=== PATIENT | female | born 1985 | race American Indian/Alaskan Native ===

== ENCOUNTER 2018-01-18 07:28 | Emergency (ER) | payer MEDICAID ==
[2018-01-18 07:45] VITALS: BP 106/77
[2018-01-18 08:24] LABS: Bilirubin,Urine NEG (Negative); Blood,Urine NEG (Negative); Color,Urine Yellow (Yellow); Mucus,Urine FEW /HPF; Protein,Urine <15 mg/dL mg/dL (Negative); Urobilinogen,Urine < 2.0 mg/dL (<2.0)
[2018-01-18 08:26] LABS: HCG Qualitative,Urine Negative (Negative)
--- NOTE | 2018-01-18 10:42 | Emergency Department Report ---
ED Female HPI - General Chief complaint: Urogenital-Female Stated complaint: UROGENITAL-FEMALE Time Seen by Provider: 01/18/18 10:35 Source: patient Mode of arrival: Ambulatory Limitations: No Limitations - History of Present Illness Initial comments: Patient reports that she is having a vaginal discharge and reported that she has had Trichomonas and Chlamydia recently and she was treated and she said that she started having sex with her boyfriend again and there were using a condom and the condom broke on Wednesday and she is still having the same symptoms and she does not know if he got treated.. Denies any urinary burning , frequency or urgency. Denies any fever or chills. Denies any nausea vomiting. She says she was having some abdominal cramping last night but she took some ibuprofen and now its gone. Triage note reported the patient was having pain 10 out of 10 the patient denies any pain at present. Patient said that she had a Pap smear and HIV test then last month when she was in [place] and everything was normal. History of tubal ligation. Denies any chest pain or shortness of breath. Denies any vaginal bleeding and last menstrual period was 01/04/2018 Complaint: vaginal discharge, possible STD Onset/Timin -: hour(s) (after exposure again from boyfriend), days(s) Location: other (no pain at present) Radiation: non-radiating Severity scale (0 -10): 0 Are you Now?: No Associated Symptoms: vaginal discharge. denies: vaginal bleeding, abdominal pain, nausea/vomiting, fever/chills, headaches, loss of appetite, dysuria, hematuria, rash, seizure, shortness of breath, syncope, weakness - Related Data Sexually active: Yes Allergies Allergy/AdvReac Type Severity Reaction Status Date / Time No Known Allergies Allergy Unverified 01/18/18 07:39 ED Review of Systems ROS: Stated complaint: UROGENITAL-FEMALE Other details as noted in HPI Comment: All other systems reviewed and negative Constitutional: no symptoms reported Eyes: denies: eye pain, eye discharge, vision change ENT: denies: ear pain, throat pain Respiratory: no symptoms reported Cardiovascular: denies: chest pain, palpitations, dyspnea on exertion, edema, syncope, paroxysmal nocturnal dyspnea Gastrointestinal: denies: abdominal pain Genitourinary: discharge. denies: urgency, dysuria, frequency, hematuria, abnormal menses, dyspareunia Musculoskeletal: denies: back pain, joint swelling, arthralgia, myalgia Skin: denies: rash Neurological: denies: headache, weakness, numbness, abnormal gait, vertigo ED Past Medical Hx - Past Medical History Previous Medical History?: Yes Additional medical history: TRICHIMONAS, CHLAMYDIA - Surgical History Past Surgical History?: Yes Additional Surgical History: X2 - Family History Family history: hypertension - Social History Smoking Status: Current Every Day Smoker Substance Use Type: Alcohol, Marijuana ED Physical Exam - General Limitations: No Limitations General appearance: alert, in no apparent distress - Head Head exam: Present: atraumatic, normocephalic, normal inspection - Eye Eye exam: Present: normal appearance, PERRL, EOMI. Absent: scleral icterus, conjunctival injection, periorbital swelling, periorbital tenderness Pupils: Present: normal accommodation - ENT ENT exam: Present: normal exam, normal orophraynx, mucous membranes moist - Neck Neck exam: Present: normal inspection, full ROM, other (no C-spine tenderness). Absent: tenderness, meningismus, lymphadenopathy - Respiratory Respiratory exam: Present: normal lung sounds bilaterally. Absent: respiratory distress, chest wall tenderness - Cardiovascular Cardiovascular Exam: Present: regular rate, normal rhythm, normal heart sounds - GI/Abdominal GI/Abdominal exam: Present: soft, normal bowel sounds. Absent: distended, tenderness, guarding, rebound, rigid, organomegaly, mass, bruit, pulsatile mass , hernia - Extremities Exam Extremities exam: Present: normal inspection, full ROM, normal capillary refill , other (no clubbing, cyanosis or edema. Positive pulses all extremities and no neurovascular compromise). Absent: tenderness, pedal edema, joint swelling, calf tenderness - Back Exam Back exam: Present: normal inspection, full ROM, other (ambulates without any difficulties). Absent: tenderness, CVA tenderness (R), CVA tenderness (L), muscle spasm, paraspinal tenderness, vertebral tenderness, rash noted - Neurological Exam Neurological exam: Present: alert, oriented X3, normal gait, reflexes normal. Absent: motor sensory deficit - Psychiatric Psychiatric exam: Present: normal affect, normal mood - Skin Skin exam: Present: warm, dry, intact, normal color. Absent: rash ED Course Vital Signs 01/18/18 07:39 Temperature 98.5 F Pulse Rate 68 Respiratory 20 Rate Blood Pressure 106/77 O2 Sat by Pulse 100 Oximetry - Reevaluation(s) Reevaluation #1: 01/18/18 10:49 Patient given Rocephin 250 mg by mouth to cover gonorrhea, just gram by mouth to cover Trichomonas and azithromycin 1 g by mouth to cover chlamydia. She chose to be treated empirically in emergency room because she was reexposed to STD from her boyfriend. ED Medical Decision Making - Lab Data Lab Results 01/18/18 Range/Units 07:52 Urine Color Yellow (Yellow) Urine Turbidity Clear (Clear) Urine pH 6.0 (5.0-7.0) Ur Specific [place] 1.012 (1.003-1.030) Urine Protein <15 mg/dl (Negative) mg/dL Urine Glucose (UA) Neg (Negative) mg/dL Urine Ketones Neg (Negative) mg/dL Urine Blood Neg (Negative) Urine Nitrite Neg (Negative) Urine Bilirubin Neg (Negative) Urine Urobilinogen < 2.0 (<2.0) mg/dL Ur Leukocyte Esterase Neg (Negative) Urine WBC (Auto) 1.0 (0.0-6.0) /HPF Urine RBC (Auto) 1.0 (0.0-6.0) /HPF U Epithel Cells (Auto) 1.0 (0-13.0) /HPF Urine Mucus Few /HPF Urine HCG, Qual Negative (Negative) - Medical Decision Making ED course: Patient here reports that she had sexual activity with her boyfriend 3 days ago and condom burst. She said that she was exposed to Trichomonas and Chlamydia a couple weeks ago from the same person and he did not get treated because he is not having any symptoms and she said that she is having the same symptoms as she was before she got treated patient said that she came from [place] and prior to coming here about a month ago she had HIV and Pap smear which was normal. She does have access to primary care side necessary that she should call [facility] today and schedule an appointment for complete physical exam in one week to include check for STD. She agreed to be treated again for STD. Patient treated in emergency room with Rocephin 250 mg IM for gonorrhea, azithromycin twinge and 1 g po for chlamydia and Flagyl 2 g by mouth for Trichomonas. I explained to her she needs to refrain from having sexual activity and she should let her boyfriend noted that he needs to go to the health department to get checked for STD. Patient voiced understanding of discharge instructions and treatment plan and need to follow up. Discharged home in stable condition. Her urinalysis was negative and urine hCG negative. Critical care attestation.: If time is entered above; I have spent that time in minutes in the direct care of this critically ill patient, excluding procedure time. ED Disposition Clinical Impression: Exposure to STD, Vaginal discharge, Risky sexual behavior Disposition: DC-01 TO HOME OR SELFCARE Is pt being admited?: No Does the pt Need Aspirin: No Condition: Stable Instructions: Sexually Transmitted Diseases (ED), Safe Sex (ED) Additional Instructions: Please refrain from having sexual activity with her partner until he gets treated and retested for STD. Urinary treated for gonorrhea, chlamydia and trichomonas in emergency room and will need to get rechecked in 7 days. Condition: [facility] for primary care visit and also for recheck on STD. Refrain from drinking alcohol over the next 5 days as medication given for Trichomonas can interact negatively would alcohol. Practice safe sex. Referrals: [facility] [Outside] - 7-10 days ([facility] and primary care follow- up for one week.)
[2018-01-18] MEDS ORDERED: XYLOCAINE 1% MPF 5 mL INFILTRATI ONE (10:47)
[2018-01-18] MEDS ORDERED: FLAGYL PO ONE (10:47)
[2018-01-18] MEDS ORDERED: ZITHROMAX PO ONE (10:47)
[2018-01-18] MEDS ORDERED: ROCEPHIN IM ONE (10:47)
== END 2018-01-18 11:13 | disposition home or self-care (01) ==
LOC: ED 07:28
DX: Z20.2 Contact with and (suspected) exposure to infections with a predominantly sexual mode of transmission (principal); F17.200 Nicotine dependence, unspecified, uncomplicated
CPT/HCPCS: 81001; 81025; 96372; 99283; J0696

== ENCOUNTER 2019-07-05 08:22 | Emergency (ER) | payer MEDICAID, OTHER ==
[2019-07-05 08:30] VITALS: BP 106/64
[2019-07-05 09:26] LABS: HCG Qualitative,Urine Negative (Negative)
[2019-07-05 09:28] LABS: Bacteria,Urine 1+ /HPF (Negative); Bilirubin,Urine NEG (Negative); Blood,Urine NEG (Negative); Color,Urine Yellow (Yellow); Protein,Urine <15 mg/dL mg/dL (Negative); Urobilinogen,Urine < 2.0 mg/dL (<2.0)
[2019-07-05] MEDS ORDERED: ZITHROMAX PO ONE (09:51)
[2019-07-05] MEDS ORDERED: XYLOCAINE 1% MPF 5 mL INFILTRATI ONE (09:51)
[2019-07-05] MEDS ORDERED: ROCEPHIN IM ONE (09:51)
--- NOTE | 2019-07-05 09:54 | Emergency Department Report ---
ED Female HPI - General Chief complaint: Abdominal Pain Stated complaint: ABD PAIN/HURTS TO URINATE Time Seen by Provider: 07/05/19 09:02 Source: patient Mode of arrival: Ambulatory Limitations: No Limitations - History of Present Illness Initial comments: 33-year-old female presents with painful urination 3 days. Patient states that this morning symptoms worsen. Patient did state that she was sexually active 5 days ago. She denies any vaginal discharge, fever, nausea vomiting MD Complaint: dysuria, pelvic pain Location: suprapubic Severity: moderate Severity scale (0 -10): 4 Worsens with: urination Are you Now?: No Associated Symptoms: denies other symptoms. denies: vaginal discharge, vaginal bleeding, nausea/vomiting - Related Data Sexually active: Yes Previous Rx's Medication Instructions Recorded Last Taken Type Phenazopyridine [Pyridium] 100 mg PO TID #10 tab 07/05/19 Unknown Rx Allergies Allergy/AdvReac Type Severity Reaction Status Date / Time No Known Allergies Allergy Unverified 01/18/18 07:39 ED Review of Systems ROS: Stated complaint: ABD PAIN/HURTS TO URINATE Other details as noted in HPI Comment: All other systems reviewed and negative ED Past Medical Hx - Past Medical History Previous Medical History?: No Additional medical history: TRICHIMONAS, CHLAMYDIA - Surgical History Past Surgical History?: Yes Additional Surgical History: X2 - Social History Smoking Status: Never Smoker Substance Use Type: Marijuana - Medications Home Medications: Home Medications Medication Instructions Recorded Confirmed Last Taken Type Phenazopyridine [Pyridium] 100 mg PO TID #10 tab 07/05/19 Unknown Rx ED Physical Exam - General Limitations: No Limitations General appearance: alert, in no apparent distress - Head Head exam: Present: atraumatic, normocephalic - Eye Eye exam: Present: normal appearance - ENT ENT exam: Present: mucous membranes moist - Neck Neck exam: Present: normal inspection - Respiratory Respiratory exam: Present: normal lung sounds bilaterally. Absent: respiratory distress - Cardiovascular Cardiovascular Exam: Present: regular rate, normal rhythm. Absent: systolic murmur, diastolic murmur, rubs, gallop - GI/Abdominal GI/Abdominal exam: Present: soft, normal bowel sounds. Absent: distended, tenderness, guarding - Extremities Exam Extremities exam: Present: normal inspection - Back Exam Back exam: Present: normal inspection - Neurological Exam Neurological exam: Present: alert, oriented X3 - Psychiatric Psychiatric exam: Present: normal affect, normal mood - Skin Skin exam: Present: warm, dry, intact, normal color. Absent: rash ED Course Vital Signs 07/05/19 08:28 Temperature 98.7 F Pulse Rate 87 Respiratory 17 Rate Blood Pressure 106/64 O2 Sat by Pulse 96 Oximetry ED Medical Decision Making - Lab Data Laboratory Last Values Urine Color Yellow (Yellow) 07/05/19 09:07 Urine Turbidity Clear (Clear) 07/05/19 09:07 Urine pH 6.0 (5.0-7.0) 07/05/19 09:07 Ur Specific [place] 1.013 (1.003-1.030) 07/05/19 09:07 Urine Protein <15 mg/dl mg/dL (Negative) 07/05/19 09:07 Urine Glucose (UA) Neg mg/dL (Negative) 07/05/19 09:07 Urine Ketones Neg mg/dL (Negative) 07/05/19 09:07 Urine Blood Neg (Negative) 07/05/19 09:07 Urine Nitrite Neg (Negative) 07/05/19 09:07 Ur Reducing Substances Not Reportable 07/05/19 09:07 Urine Bilirubin Neg (Negative) 07/05/19 09:07 Urine Ictotest Not Reportable 07/05/19 09:07 Urine Urobilinogen < 2.0 mg/dL (<2.0) 07/05/19 09:07 Ur Leukocyte Esterase Neg (Negative) 07/05/19 09:07 Urine WBC (Auto) 1.0 /HPF (0.0-6.0) 07/05/19 09:07 Urine RBC (Auto) 3.0 /HPF (0.0-6.0) 07/05/19 09:07 U Epithel Cells (Auto) 2.0 /HPF (0-13.0) 07/05/19 09:07 Urine Bacteria (Auto) 1+ /HPF (Negative) 07/05/19 09:07 Urine HCG, Qual Negative (Negative) 07/05/19 09:07 - Medical Decision Making 33-year-old female presents with STD exposure and dysuria. ED course: Urinalysis test obtained. Urinalysis shows normal findings and test is negative Patient received 250 mg of Rocephin, azithromycin 1 g, for prophylaxis to exposure Discussed with patient possible STD due to exposure. Discussed with patient findings and treatment in the ED today Discussed prophylaxis treatment patient is to abstain from sex 7-10 days as treatment. Discussed patient partner knowledge and treatment. Discussed protective we are doing sex and Safe sex instructions given. Discussed the follow-up with the health department for further STD testing. Patient's alert and oriented times 3. Vital signs are normal patient is in no acute discharge. Patient will be discharged home with instructions. Critical care attestation.: If time is entered above; I have spent that time in minutes in the direct care of this critically ill patient, excluding procedure time. ED Disposition Clinical Impression: Dysuria, Possible exposure to STD Disposition: DC-01 TO HOME OR SELFCARE Is pt being admited?: No Does the pt Need Aspirin: No Condition: Stable Instructions: Sexually Transmitted Diseases (ED), Safe Sex (ED), Dysuria (ED) Additional Instructions: Make sure to follow up with the primary care physician as discussed. History of follow-up with the health Department for STD screening. As you were not screened for STDs in the ED today If you have any worsening symptoms or develop new symptoms please return to ED immediately. Prescriptions: Phenazopyridine [Pyridium] 100 mg PO TID #10 tab Referrals: PRIMARY CARE, [Primary Care Provider] - 3-5 Days [facility] [Outside] - 3-5 Days [facility] [Outside] - 3-5 Days Forms: Work/School Release Form(ED) Time of Disposition: 10:02
== END 2019-07-05 10:56 | disposition home or self-care (01) ==
LOC: ED 08:22
DX: Z20.2 Contact with and (suspected) exposure to infections with a predominantly sexual mode of transmission (principal); F12.10 Cannabis abuse, uncomplicated; Z79.899 Other long term (current) drug therapy
CPT/HCPCS: 81001; 81025; 96372; 99283; J0696